=== PATIENT | female | born 1985 | race Caucasian/White ===

== ENCOUNTER 2019-02-21 16:00 | Emergency (ER) | payer OTHER ==
--- NOTE | 2019-02-21 17:08 | UC ---
Cardiac HPI - HPI Summary HPI Summary: 33 yo female with constant SSCP x 2-3 days no sob increased pain with deep breath no n/v/d no f/c currently on Zpak for URI - History of Current Complaint Chief Complaint: UCChestPain Stated Complaint: CHEST DISCOMFORT Time Seen by Provider: 02/21/19 17:02 Hx Obtained From: Patient Hx Last Menstrual Period: 02/15/19 Onset/Duration: Gradual Onset, Lasting Days Timing: Constant Initial Severity: Mild Current Severity: Mild Pain Intensity: 3 Chest Pain Location: Mid Sternal Character: Pressure/Squeezing, Sharp/Stabbing Aggravating Factor(s): Deep Breaths Alleviating Factor(s): Rest Associated Signs & Symptoms: Positive: Chest Pain - Allergy/Home Medications Allergies/Adverse Reactions: Allergies Allergy/AdvReac Type Severity Reaction Status Date / Time lanolin Allergy Congestion Verified 02/11/19 06:39 Home Medications: Home Medications Azithromycin 250 mg PO DAILY 02/21/19 [History Confirmed 02/21/19] Levocetirizine Dihydrochloride [Xyzal Allergy 24Hr] 5 mg PO DAILY 02/21/19 [ History Confirmed 02/21/19] Levothyroxine Sodium [Synthroid] 112 mcg PO 02/21/19 [History] Loratadine [Claritin] 10 mg PO DAILY 02/21/19 [History Confirmed 02/21/19] PMH/Surg Hx/FS Hx/Imm Hx Previously Healthy: Yes - Surgical History Surgical History: Yes Surgery Procedure, Year, and Place: TONSILS AGE 4; 07/2018 SINUS SURGERY - Family History Known Family History: Positive: Hypertension - Social History Alcohol Use: Occasionally Substance Use Type: None Smoking Status (MU): Never Smoked Tobacco Review of Systems All Other Systems Reviewed And Are Negative: Yes Constitutional: Positive: Negative Skin: Positive: Negative Eyes: Positive: Negative ENT: Positive: Negative Respiratory: Positive: Negative Cardiovascular: Positive: Chest Pain Gastrointestinal: Positive: Negative Genitourinary: Positive: Negative Motor: Positive: Negative Neurovascular: Positive: Negative Musculoskeletal: Positive: Negative Neurological: Positive: Negative Psychological: Positive: Negative Physical Exam Vital Signs: Initial Vital Signs Temp 98.6 F 02/21/19 16:02 Pulse 92 02/21/19 16:02 Resp 15 02/21/19 16:02 BP 165/101 02/21/19 16:02 Pulse Ox 100 02/21/19 16:02 Images Front/Back of Body, Lg ([place]): 1 - tender here/reproduces pain Diagnostics - Radiology No standard instances Radiology Interpretation Completed By: Radiologist Summary of Radiographic Findings: NAD - EKG Cardiac Rate: NL Cardiac Rhythm: Sinus: Normal Ectopy: None ST Segment: Normal - Clinical Impression Provider Diagnosis: Acute chest wall pain Discharge - Sign-Out/Discharge Documenting (check all that apply): Patient Departure All imaging exams completed and their final reports reviewed: Yes - Discharge Plan Condition: Stable Disposition: HOME Patient Education Materials: Chest Wall Pain (ED) Referrals: Indira Torrez PA [Primary Care Provider] - 4 Days (recheck in 4-10 days) Additional Instructions: aleve 1-2 pills twice daily with food for pain heat - Billing Disposition and Condition Condition: STABLE Disposition: Home
[2019-02-21 17:34] VITALS: BP 120/88
--- OUTSIDE RECORDS SUMMARY | 2019-02-21 19:15 | XMS REPORT | Continuity of Care Document ---
:1985 External Reference #:[id number] Author Name Tammy Smith Care Team Providers Name Role Phone Мария Villegas NP Care Team Information Asset Protection Agent Unavailable Мария Villegas NP Primary Care Physician Unavailable Payers Date Identification Numbers Payment Provider Subscriber Policy Number: [id number] [facility] Gerri Salazar PayID: [id number] [address] [place] [address] Advance Directives Description No Information Available Problems Description No Information Family History Date Family Member(s) Observation Comments Onset: (11/2017) Father Hypertension Onset: (11/2017) Father Seasonal Allergies Social History Type Date Description Comments Sex Unknown Marital Status Lives With Spouse Lives With Son Pets 1 dog 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 ETOH Use Moderate Tobacco Use Start: Unknown End: Unknown Patient is a former smoker Recreational Drug Use Never Used Drugs Allergies, Adverse Reactions, Alerts Date Description Reaction Status Severity Comments 02/23/2018 NKDA Active 11/09/2017 Seasonal Active Medications Medication Date Status Form Strength Qnty SIG Indications Ordering Provider Levothyroxine 12/21/ Active Tablets 125mcg 90tab 1 by Thuan Asc Sodium 2019 s mouth every day Xyzal Allergy / Active Tablets 5mg 1 by Unknown 24HR 0000 mouth every day Sudafed 0000/ Active Tablets Unknown 0000 Ibuprofen 0000/ Active Tablets 200mg Unknown 0000 Mucinex D / Active Tablets ER 60-600mg Unknown 0000 12HR Vitamin D3 / Active Capsules 5000Unit Unknown Maximum 0000 Strength Ra Selenium / Active Tablets 200mcg Unknown Natural 0000 Fluticasone / Active Suspension 50mcg/Act 2 sprays Unknown Propionate 0000 both nostrils every day Amoxicillin 01/13/ Hx Tablets 875mg 6tabs 1 by Thuan, 2019 - mouth Armando, 01/30/ twice a M.D. 2019 day for 3 days Prednisone 01/13/ Hx Tablets 10mg 3tabs 1 by Thuan 2018 - mouth Armando, 01/30/ every M.D. 2018 morning Percocet 12/27/ Hx Tablets 5-325mg 20tab 1-2 by Thuan 2018 - s mouth Armando, 01/30/ four M.D. 2019 times a day as needed for pain Prednisone 09/13/ Hx Tablets 10mg 5tabs 1 by Thuan 2017 - mouth Armando, 11/16/ every M.D. 2018 morning Percocet 07/28/ Hx Tablets 5-325mg 20tab 1-2 by Thuan 2017 - s mouth Armando, 08/30/ four M.D. 2018 times a day as needed for pain Amoxicillin/Cla 11/09/ Hx Tablets 875-125mg 20tab 1 by kimi Larose 2017 - s mouth Armando, Potassium 11/22/ twice a M.D. 2017 day for 10 days Dexamethasone 11/09/ Hx Tablets 4mg 3tabs 1 by Thuan 2017 - mouth in Arm[place], 11/22/ the a.m. M.D. 2017 Fluticasone 11/09/ Hx Suspension 50mcg/Act 1unit 2 sprays Thuan Propionate 2017 - s each Armando, 11/16/ nostril M.D. 2018 every day Levothyroxine / Hx Tablets 25mcg 1 by Unknown Sodium 0000 - mouth 12/21/ every day 2018 Immunizations Description No Information Available Vital Signs Date Vital Result Comment 01/31/2019 11:49am Weight 152.00 lb Height 65.5 inches 5'5.50" BMI (Body Mass Index) 24.9 kg/m2 BP Systolic 122 mmHg BP Diastolic 82 mmHg Heart Rate 86 /min O2 % BldC Oximetry 100 % Body Temperature 98.1 F Pain Level 0 01/13/2019 1:02pm Weight 151.00 lb Height 65.5 inches 5'5.50" BMI (Body Mass Index) 24.7 kg/m2 BP Systolic 144 mmHg BP Diastolic 93 mmHg Heart Rate 95 /min O2 % BldC Oximetry 99 % Body Temperature 99.5 F Pain Level 0 01/03/2019 9:37am Weight 155.00 lb Height 65.5 inches 5'5.50" BMI (Body Mass Index) 25.4 kg/m2 BP Systolic 135 mmHg BP Diastolic 87 mmHg Heart Rate 91 /min O2 % BldC Oximetry 100 % Body Temperature 97.7 F Pain Level 0 11/17/2018 8:44am Weight 157.00 lb Height 65.5 inches 5'5.50" BMI (Body Mass Index) 25.7 kg/m2 Heart Rate 89 /min O2 % BldC Oximetry 98 % Body Temperature 98.4 F Pain Level 2 right ear 10/13/2018 9:52am Weight 157.00 lb Height 65.5 inches 5'5.50" BMI (Body Mass Index) 25.7 kg/m2 BP Systolic 137 mmHg BP Diastolic 91 mmHg Heart Rate 80 /min O2 % BldC Oximetry 100 % Body Temperature 98.3 F Pain Level 3 09/13/2018 8:21am Weight 155.00 lb Height 65.5 inches 5'5.50" BMI (Body Mass Index) 25.4 kg/m2 BP Systolic 135 mmHg BP Diastolic 92 mmHg Heart Rate 91 /min O2 % BldC Oximetry 100 % Body Temperature 97.2 F Pain Level 0 08/30/2018 8:02am Weight 157.00 lb Height 65.5 inches 5'5.50" BMI (Body Mass Index) 25.7 kg/m2 BP Systolic 128 mmHg BP Diastolic 84 mmHg Heart Rate 85 /min O2 % BldC Oximetry 98 % Body Temperature 96.9 F Pain Level 3 08/04/2018 9:40am Weight 151.00 lb Height 65.5 inches 5'5.50" BMI (Body Mass Index) 24.7 kg/m2 BP Systolic 154 mmHg BP Diastolic 90 mmHg Heart Rate 85 /min O2 % BldC Oximetry 99 % Body Temperature 97.3 F Pain Level 0 02/23/2018 4:13pm Weight 164.00 lb Height 65.5 inches 5'5.50" BMI (Body Mass Index) 26.9 kg/m2 BP Systolic 147 mmHg BP Diastolic 93 mmHg Heart Rate 92 /min O2 % BldC Oximetry 100 % Body Temperature 98.1 F Pain Level 0 01/25/2018 1:36pm Weight 163.50 lb Height 65.5 inches 5'5.50" BMI (Body Mass Index) 26.8 kg/m2 BP Systolic 153 mmHg BP Diastolic 99 mmHg Heart Rate 86 /min O2 % BldC Oximetry 100 % room air Body Temperature 98.1 F Pain Level 1 11/23/2017 2:13pm Weight 157.00 lb Height 64 inches 5'4" BMI (Body Mass Index) 26.9 kg/m2 BP Systolic 118 mmHg BP Diastolic 76 mmHg Heart Rate 82 /min O2 % BldC Oximetry 99 % Body Temperature 98.6 F Pain Level 0 11/09/2017 1:54pm Weight 157.12 lb Height 64 inches 5'4" BMI (Body Mass Index) 27.0 kg/m2 BP Systolic 148 mmHg BP Diastolic 96 mmHg Heart Rate 98 /min O2 % BldC Oximetry 99 % Body Temperature 98.6 F Pain Level 0 Results Test Date Facility Test Result H/L Range Note CBS 01/25/2019 [facility] White Blood 4.4 K/uL N 3.1-10.7 1 W/Automated [address] [place] [address] [phone] Red Blood Count 4.94 M/uL N 3.90-5.40 Hemoglobin 15.1 gm/dL N 11.6-15.8 Hematocrit 43.3 % N 36.0-46.1 Mean Cell Volume 87.7 fl N 80.9-99.0 Mean Corpuscular HGB 30.6 pg N 25.9-32.7 Mean Corpuscular HGB Conc 34.9 g/dL High 30.8-34.3 Platelet Count 283 K/uL N 155-360 Red Cell Distri Width SD 41.9 fl N 36-47 Red Cell Distri Width %CV 13.3 % N 11.7-14.4 Mean Platelet Volume 10.1 fL N 8.9-12.4 Neut% 52.8 % N 40.4-72.8 Lymph % 34.9 % N 20.0-42.0 Meigs % 10.4 % N 4.3-13.2 Eo% 1.4 % N 0.0-6.6 Bas% 0.5 % N 0.0-1.1 Neut# 2.35 K/uL N 1.8-7.0 Lymph # 1.55 K/uL N 1.0-4.0 Meigs # 0.46 K/uL N 0.3-0.9 Eos # 0.06 K/uL N 0.0-0.5 Baso # 0.02 K/uL N 0.0-0.1 Basic Metabolic Panel 01/25/2019 [facility] Glucose 96 mg/dL N 74-106 [address] [place] [address] [phone] BUN 10 mg/dL N 7-18 Creatinine 0.8 mg/dL N 0.6-1.3 Glom Filtration Rate, Estimate >60 mL/min >60 If >60 mL/min >60 2 BUN/Creat 12.5 ratio Sodium 140 mmol/L N 136-145 Potassium 4.1 mmol/L N 3.5-5.1 Chloride 106 mmol/L N 98-107 Carbon Dioxide 28 mmol/L N 21-32 Anion Gap 6 mEq/L Low 8-16 Calcium 9.2 mg/dL N 8.5-10.1 1 J32.9, J31.0, J34.3 2 Note: Persistent reduction for 3 months or more in an eGFR <60 mL/min/1.73 m2 defines CKD. Patients with eGFR values >/=60 mL/min/1.73 m2 may also have CKD if evidence of persistent proteinuria is present. The original MDRD equation for estimated GFR is not valid for patients less than 18 years of age. Additional information may be found at www.[email or web address]. Procedures Date Code Description Status 12/27/2018 27903 Stereotactic Computer-Assisted, Cranial, Extradural Completed 12/27/2018 11587 Nasal/Sinus Endosc.W.Explor. Completed 12/27/2018 96334 Nasal/Sinus Endo Inc Sphenoido Completed 12/27/2018 34760 Nasal/Sinus Endosc.W.Max.Antrost. Completed 12/27/2018 98844 Submucous Resect.Turb.Par Or Comp Completed 12/27/2018 04448 Anesthesia, Nose & Accessory Sinus Surgery Not Otherwise Completed Spec 11/17/2018 75161 Cat Scan Maxillofacial W/O Contrast,computed tomography Completed 11/17/2018 18778 Cat Scan Maxillofacial W/O Contrast,computed tomography Completed 11/17/2018 99312 Cat Scan Maxillofacial W/O Contrast,computed tomography Completed 09/13/2018 89585 Tympanometry Completed 07/28/2018 77600 Stereotactic Computer-Assisted, Cranial, Extradural Completed 07/28/2018 54235 Nasal/Sinus Endo Inc Sphenoido Completed 07/28/2018 51243 Nasal/Sinus Endosc.W.Max.Antrost. Completed 07/28/2018 15031 Septoplasty Completed 07/28/2018 13034 Submucous Resect.Turb.Par Or Comp Completed 07/28/2018 01596 Anesthesia, Nose & Accessory Sinus Surgery Not Otherwise Completed Spec 06/29/2018 64222 Nasal Endoscopy, Diag. Completed 02/05/2018 62328 Basic Vestibular Eval Completed 01/25/2018 17871 Nasal Endoscopy, Diag. 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 J32.9 Chronic sinusitis, 2:30p unspecified J34.2 Deviated nasal septum J34.3 Hypertrophy of nasal turbinates J31.0 Chronic rhinitis Office Visit 02/23/2018 4:15p Main Office Armando Larose M.D. R42 Dizziness and giddiness J31.0 Chronic rhinitis Office Visit 01/25/2018 1:15p Main Office Armando Larose J32.9 Chronic sinusantony, M.DSheyla unspecified J34.3 Hypertrophy of nasal turbinates J34.2 Deviated nasal septum R42 Dizziness and giddiness H69.83 Other specified disorders of Eustachian tube, bilateral Office Visit 11/23/2017 2:15p Main Office Anu Valencia J32.9 Chronic sinusitis, Yen, BLOOM CONVEYOR OPERATOR unspecified J34.3 Hypertrophy of nasal turbinates Office Visit 11/09/2017 1:45p Main Office Anu Valencia J34.3 Hypertrophy of nasal Yen, BLOOM CONVEYOR OPERATOR turbinates J01.90 Acute sinusitis, unspecified H69.93 Unspecified Eustachian tube disorder, bilateral Plan of Treatment Future Appointment(s):03/23/2019 9:00 am - Anu Yen NP at Main Office
--- OUTSIDE RECORDS SUMMARY | 2019-02-21 19:15 | XMS REPORT | Continuity of Care Document ---
:1985 External Reference #:[id number] Author Name Armando Larose M.D. Address [address] [place] [address] Care Team Providers Name Role Phone Мария Villegas NP Care Team Information Coat Agent Unavailable Мария Villegas NP Primary Care Physician Unavailable Payers Date Identification Numbers Payment Provider Subscriber Policy Number: [id number] [facility] Gerri Salazar PayID: [id number] [address] [place] [address] Advance Directives Description No Information Available Problems [...] Unknown 24HR 0000 mouth every day Sudafed / Active Tablets Unknown 0000 Ibuprofen 0000/ Active Tablets 200mg Unknown 0000 Mucinex D 0000/ Active Tablets ER 60-600mg Unknown 0000 12HR Vitamin D3 00/ Active Capsules 5000Unit Unknown Maximum 0000 Strength Ra Selenium / Active Tablets 200mcg Unknown Natural 0000 Fluticasone / Active Suspension 50mcg/Act 2 sprays Unknown Propionate 0000 both nostrils every day Amoxicillin 01/13/ Hx Tablets 875mg 6tabs 1 by Thuan 2018 - mouth Armando, 01/30/ twice a M.D. 2019 day for 3 days Prednisone 01/13/ Hx Tablets 10mg 3tabs 1 by Thuan, 2018 - mouth Armando, 01/30/ every M.D. 2019 morning Percocet 12/27/ Hx Tablets 5-325mg 20tab [...] mouth Armando, Potassium 11/22/ twice a M.D. 2018 day for 10 days Dexamethasone 11/09/ Hx Tablets 4mg 3tabs 1 by Thuan 2017 - mouth in Arm[place], 11/22/ the a.m. M.D. 2017 Fluticasone 11/09/ Hx Suspension 50mcg/Act 1unit 2 sprays Thuan, Propionate 2017 - s each Armando, 11/16/ [...] Test Result H/L Range Note CBS 01/25/2019 [facility] White Blood 4.4 K/uL N 3.1-10.7 1 W/Automated [address] [place] [address] [phone] Red Blood Count 4.94 M/uL N 3.90-5.40 [...] 40.4-72.8 Lymph % 34.9 % N 20.0-42.0 Trigg % 10.4 % N 4.3-13.2 Eo% 1.4 % N 0.0-6.6 Bas% 0.5 % N 0.0-1.1 Neut# 2.35 K/uL N 1.8-7.0 Lymph # 1.55 K/uL N 1.0-4.0 Trigg # 0.46 K/uL N 0.3-0.9 Eos # 0.06 K/uL N 0.0-0.5 Baso # 0.02 K/uL N 0.0-0.1 Basic Metabolic Panel 01/25/2019 [facility] Glucose 96 mg/dL N 74-106 [address] [place] [address] [phone] BUN 10 mg/dL N 7-18 Creatinine 0.8 [...] [email or web address]. Procedures Date Code Description Status 12/27/2018 23234 Stereotactic Computer-Assisted, Cranial, Extradural Completed 12/27/2018 91507 Nasal/Sinus Endosc.W.Explor. Completed 12/27/2018 51564 Nasal/Sinus Endo Inc Sphenoido Completed 12/27/2018 52325 Nasal/Sinus Endosc.W.Max.Antrost. Completed 12/27/2018 88242 Submucous Resect.Turb.Par Or Comp Completed 12/27/2018 77672 Anesthesia, Nose & Accessory Sinus Surgery Not Otherwise Completed Spec 11/17/2018 92886 Cat Scan Maxillofacial W/O Contrast,computed tomography Completed 11/17/2018 21034 Cat Scan Maxillofacial W/O Contrast,computed tomography Completed 11/17/2018 89723 Cat Scan Maxillofacial W/O Contrast,computed tomography Completed 09/13/2018 00790 Tympanometry Completed 07/28/2018 80068 Stereotactic Computer-Assisted, Cranial, Extradural Completed 07/28/2018 40712 Nasal/Sinus Endo Inc Sphenoido Completed 07/28/2018 74987 Nasal/Sinus Endosc.W.Max.Antrost. Completed 07/28/2018 16044 Septoplasty Completed 07/28/2018 30440 Submucous Resect.Turb.Par Or Comp Completed 07/28/2018 51362 Anesthesia, Nose & Accessory Sinus Surgery Not Otherwise Completed Spec 06/29/2018 73655 Nasal Endoscopy, Diag. Completed 02/05/2018 54563 Basic Vestibular Eval Completed 01/25/2018 64728 Nasal Endoscopy, Diag. 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 J32.9 Chronic sinusitis, 2:30p unspecified J34.2 Deviated nasal septum J34.3 Hypertrophy of nasal turbinates J31.0 Chronic rhinitis Office Visit 02/23/2018 4:15p Main Office Armando Larose M.D. R42 Dizziness and giddiness J31.0 Chronic rhinitis Office Visit 01/25/2018 1:15p Main Office Armando Larose J32.Thais Chronic sinusantony, MSheylaDSheyla unspecified J34.3 Hypertrophy of nasal turbinates J34.2 Deviated nasal septum R42 Dizziness and giddiness H69.83 Other specified disorders of Eustachian tube, bilateral Office Visit 11/23/2017 2:15p Main Office Anu Valencia J32.9 Chronic sinusitis, Yen, PLYWOOD PATCHER unspecified J34.3 Hypertrophy of nasal turbinates Office Visit 11/09/2017 1:45p Main Office Anu Valencia J34.3 Hypertrophy of nasal Yen, PLYWOOD PATCHER turbinates J01.90 Acute sinusitis, unspecified H69.93 Unspecified Eustachian tube disorder, bilateral Plan of Treatment Future Appointment(s):03/23/2019 9:00 am - Anu Yen NP at Main Office
== END 2019-02-21 17:53 | disposition home or self-care (01) ==
LOC: UCCORT 16:00
DX: R07.89 Other chest pain (principal); Z88.8 Allergy status to other drugs, medicaments and biological substances
CPT/HCPCS: 71046; 93005; 99211; G0463